=== PATIENT | male | born 1975 | race African-American/Black ===

== ENCOUNTER 2016-12-19 02:32 | Emergency (ER) | payer SELFPAY ==
[~2016-12-19] VITALS: Ht 182.9 cm; Wt 152.0 kg
[~2016-12-19 02:32] MED LIST: Z.0.NO CURRENT MEDS
[2016-12-19 02:34] VITALS: BP 135/77; PULSE 90; RESP 20; TEMP 97.6; O2SAT 97
[2016-12-19 03:59] VITALS: BP 137/92; PULSE 85; RESP 18; O2SAT 100
[2016-12-19 04:43] LABS: AUTOMATED NEUTROPHIL # 4.5 TH/MM3 (1.8-7.7); BASOPHIL # 0.1 TH/MM3 (0-0.2); BASOPHIL % 1.5 % (0.0-2.0); EOSINOPHIL # 0.4 TH/MM3 (0-0.4); EOSINOPHIL % 4.4 % (0.0-4.0); HEMATOCRIT 39.5 % (39.0-51.0); HEMO FLAGS DIFF FINAL; LYMPH % 33.2 % (9.0-44.0); LYMPHOCYTE # 2.8 TH/MM3 (1.0-4.8); MEAN CELL VOLUME 84.3 FL (80.0-100.0); MEAN CORPUSCULAR HGB CONC 33.2 % (32.0-36.0); MONO % 7.2 % (0.0-8.0); NEUT % 53.7 % (16.0-70.0); PLATELET COUNT 251 TH/MM3 (150-450); RED BLOOD COUNT 4.69 MIL/MM3 (4.50-5.90); RED CELL DISTRIBUTION WIDTH 13.1 % (11.6-17.2); WHITE BLOOD COUNT 8.3 TH/MM3 (4.0-11.0)
[2016-12-19 04:52] LABS: APTT (PATIENT) 27.8 SEC (24.3-30.1)
[2016-12-19 04:57] LABS: BICARBONATE 27.1 MEQ/L (21.0-32.0); POTASSIUM 3.9 MEQ/L (3.5-5.1)
[2016-12-19] MEDS ORDERED: ACETAMINOPHEN/HYDROcodone 325 MG/5 MG TAB PO ONE (05:30)
--- NOTE | 2016-12-19 05:32 | RADRPT ---
EXAM DATE/TIME: 12/19/2016 05:02 [place] COMPARISON: No previous studies available for comparison. INDICATIONS : Right leg swelling. MEDICAL HISTORY : Hypercholesterolemia. Bronchitis. Sleep apnea. Right foot fracture. Previous suicide attempt as a child. SURGICAL HISTORY : None. ENCOUNTER: Initial ACUITY: 4 - 6 days PAIN SCORE: 10/10 LOCATION: Right leg. TECHNIQUE: Venous ultrasound of the leg was performed from the inguinal ligament to the proximal calf. Real-richy e, color Doppler and spectral tracing, compression and augmentation techniques were used. FINDINGS: There is normal compressibility of the deep venous system from the inguinal region to the proximal ca lf. No echogenic clot is seen in the lumen of the common femoral, femoral, popliteal, and posterior tibial veins. There is a normal response of the venous system to proximal and distal augmentation an d respiration. CONCLUSION: Normal examination. Gerry Suarez MD on December 19, 2016 at 5:31 Board Certified Radiologist. This report was verified electronically.
--- NOTE | 2016-12-19 05:58 | PD ---
HPI Chief Complaint: Edema Time Seen by Provider: 04:06 Travel History International Travel<30 days: No Contact w/Intl Traveler<30days: No Traveled to known affect area: No History of Present Illness HPI The patient had a few days of right lower extremity pain and swelling. It has gradually increased. It is constant. He's had no shortness of breath however he does suffer with sleep apnea. He denies recent trauma. He has no history of DVT. Pain is worse with palpation and ambulation. PFSH Past Medical History Asthma: Yes (BRONCHITIS) High Cholesterol: Yes Musculoskeletal: Yes (FX RIGHT FOOT 11/2008) Sleep Apnea: Yes Tetanus Vaccination: > 5 Years Influenza Vaccination: No PNEUMOCCOCAL Vaccine (Year): 2 Past Surgical History Surgical History: No Previous Surgery Other Surgery: No Social History Alcohol Use: Yes (rarely) Tobacco Use: Yes (1 PPD) Substance Use: No Allergies-Medications (Allergen,Severity, Reaction): Coded Allergies: No Known Allergies (Verified , 12/19/16) Reported Meds & Prescriptions Reported Meds & Active Scripts Active Bactrim DS (Sulfamethoxazole-Trimethoprim) 800-160 Mg Tab 1 Tab PO BID Review of Systems Except as stated in HPI: all other systems reviewed are Neg Physical Exam Narrative GENERAL: 41 yo M, WNWD, NAD SKIN: Warm and dry. HEAD: Atraumatic. Normocephalic. EYES: Pupils equal and round. No scleral icterus. No injection or drainage. ENT: No nasal bleeding or discharge. Mucous membranes pink and moist. NECK: Trachea midline. No JVD. CARDIOVASCULAR: Regular rate and rhythm. RESPIRATORY: No accessory muscle use. Clear to auscultation. Breath sounds equal bilaterally. GASTROINTESTINAL: Abdomen soft, non-tender, nondistended. Hepatic and splenic margins not palpable. MUSCULOSKELETAL: ++TTP RLE with minimal swelling. ++ warmth R calf. NEUROLOGICAL: Awake and alert. No obvious cranial nerve deficits. Motor grossly within normal limits. Five out of 5 muscle strength in the arms and legs. Normal speech. PSYCHIATRIC: Appropriate mood and affect; insight and judgment normal. Data Data Last Documented VS Vital Signs Date Time Temp Pulse Resp B/P Pulse Ox O2 Delivery O2 Flow Rate FiO2 12/19/16 06:03 90 16 139/89 96 Room Air 12/19/16 02:34 97.6 VS reviewed Orders Us Leg Venous Doppler (12/19/16 ) Complete Blood Count With Diff (12/19/16 04:24) Basic Metabolic Panel (Bmp) (12/19/16 04:24) D-Dimer (12/19/16 04:24) Act Partial Throm Time (Ptt) (12/19/16 04:24) Acetamin-Hydrocod 325-5 Mg ([place] 5-325 (12/19/16 05:30) Labs Laboratory Tests Test 12/19/16 04:31 White Blood Count 8.3 TH/MM3 Red Blood Count 4.69 MIL/MM3 Hemoglobin 13.1 GM/DL Hematocrit 39.5 % Mean Corpuscular Volume 84.3 FL Mean Corpuscular Hemoglobin 28.0 PG Mean Corpuscular Hemoglobin 33.2 % Concent Red Cell Distribution Width 13.1 % Platelet Count 251 TH/MM3 Mean Platelet Volume 8.3 FL Neutrophils (%) (Auto) 53.7 % Lymphocytes (%) (Auto) 33.2 % Monocytes (%) (Auto) 7.2 % Eosinophils (%) (Auto) 4.4 % Basophils (%) (Auto) 1.5 % Neutrophils # (Auto) 4.5 TH/MM3 Lymphocytes # (Auto) 2.8 TH/MM3 Monocytes # (Auto) 0.6 TH/MM3 Eosinophils # (Auto) 0.4 TH/MM3 Basophils # (Auto) 0.1 TH/MM3 CBC Comment DIFF FINAL Differential Comment Activated Partial 27.8 SEC Thromboplast Time D-Dimer Quantitative (PE/DVT) 0.21 MG/L FEU Sodium Level 135 MEQ/L Potassium Level 3.9 MEQ/L Chloride Level 99 MEQ/L Carbon Dioxide Level 27.1 MEQ/L Anion Gap 9 MEQ/L Blood Urea Nitrogen 11 MG/DL Creatinine 0.82 MG/DL Estimat Glomerular Filtration 126 ML/MIN Rate Random Glucose 325 MG/DL Calcium Level 9.2 MG/DL [facility] Medical Decision Making Medical Screen Exam Complete: Yes Emergency Medical Condition: Yes Medical Record Reviewed: Yes Differential Diagnosis DVT, cellulitis, edema Narrative Course CBC & BMP Diagram 12/19/16 04:31 Patient appears to have a mild right lower extremity cellulitis. He also has hyperglycemia concerning for diabetes. We discussed this with the patient. His family members were present and assured us that he would follow up with patient assistance program. He is a lifelong resident of [facility] and currently employed. He's ready for discharge. Diagnosis Primary Impression: Swelling of right lower extremity Additional Impression: Diabetes Referrals: Patient Assistance Program 2 days Additional Instructions: You have a choice when it comes to health care, and we are glad that you chose [facility]. Hopefully, we have met your expectations on today's visit. You are welcome to return to [facility] at any time, as we are committed to meeting the health care needs of our community. Med/Other Pt SpecificInfo: Prescription(s) given Scripts Sulfamethoxazole-Trimethoprim (Bactrim DS)800-160 Mg Tab1 Tab PO BID #20 TAB Ref 0 Prov:Kuldip Senior MD 12/19/16 Disposition: DISCHARGE HOME Condition: Stable Kuldip Senior MD Dec 19, 2016 05:58
[2016-12-19 06:03] VITALS: BP 139/89; PULSE 90; RESP 16; O2SAT 96
[2016-12-19] MEDS ORDERED: BACT800T5 PO (06:09)
== END 2016-12-19 06:35 | disposition home or self-care (01) ==
LOC: NEPE 02:32
DX: R60.0 Localized edema (principal); R73.9 Hyperglycemia, unspecified; E78.00 Pure hypercholesterolemia, unspecified; G47.30 Sleep apnea, unspecified; F17.210 Nicotine dependence, cigarettes, uncomplicated
CPT/HCPCS: 80048; 85025; 85379; 85730; 93971